=== PATIENT | male | born 1955 | race Caucasian/White ===

== ENCOUNTER 2016-07-16 22:57 | Emergency (ER) | payer SELFPAY | END 2016-07-16 23:22 | disposition home or self-care (01) | LOC: BURERS 22:57 | DX: T63.441A Toxic effect of venom of bees, accidental (unintentional), initial encounter (principal); I10 Essential (primary) hypertension; F32.9 Major depressive disorder, single episode, unspecified | CPT/HCPCS: 99282 ==

== ENCOUNTER 2016-11-05 14:15 | Emergency (ER) | payer SELFPAY ==
--- NOTE | 2016-11-05 17:48 | RAD ---
CERVICAL SPINE 11/05/2016 TECHNIQUE: AP, lateral, open mouth, and Swimmer's views were provided. FINDINGS: No fracture is seen. There is severe degenerative change in the cervical spine, with large bridging osteophytes seen anteriorly, from C3 and below. The disk spaces are normal in height. The C1 to d ens distance is normal. The soft tissues are normal in thickness. IMPRESSION: Severe degenerative change with very large anterior bridging osteophytes. POS: HOME
--- NOTE | 2016-11-05 17:54 | RAD ---
LUMBAR SPINE THREE VIEWS 11/05/2016 FINDINGS: Large bridging anterior and lateral osteophytes are seen. The lumbar disk spaces are normal in heig ht. There may be a little narrowing at T12-L1. There is some very slight wedging of the L1 vertebr al body, but it does not appear acute. The SI joints are somewhat blurred. Some of these findings can be seen in ankylosing spondylitis, though the appearance is certainly not the typical bamboo spi ne. Faint calcification of the aorta is normal. IMPRESSION: Moderately severe degenerative changes. POS: HOME
== END 2016-11-05 15:15 | disposition home or self-care (01) ==
LOC: BURERS 14:15
DX: M47.812 Spondylosis without myelopathy or radiculopathy, cervical region (principal); M47.816 Spondylosis without myelopathy or radiculopathy, lumbar region; F32.9 Major depressive disorder, single episode, unspecified; F17.210 Nicotine dependence, cigarettes, uncomplicated; Z79.899 Other long term (current) drug therapy
CPT/HCPCS: 72040; 72100

== ENCOUNTER 2017-06-29 23:07 | Emergency (ER) | payer BC, OTHER, SELFPAY ==
[2017-06-30] MEDS ORDERED: Ibuprofen 800 MG TAB ONE (00:29)
--- NOTE | 2017-06-30 07:43 | RAD ---
CHEST 2 VIEWS: Date: 06/29/17 The heart is normal in size. There is no mediastinal widening or shift. The lungs are fully inflated and clear. No acute infiltrate or effusion seen. No pneumothorax. Regarding the ribs, no gross fractu res or areas of focal pleural thickening were seen. There may have been an old injury to the distal r ight clavicle. IMPRESSION: No acute thoracic finding. POS: HOME
--- NOTE | 2017-06-30 08:03 | CT ---
PRELIMINARY REPORT/[facility]/EMERGENCY AFTER HOURS PROCEDURE: EXAM: CT Head Without Intravenous Contrast EXAM DATE/TIME: Exam ordered 06/29/2017 11:43 PM CLINICAL HISTORY: 62 years old, male; Injury or trauma; Fall; Initial encounter; Blunt trauma (contusions or hematomas) ; Patient HX: Pt. Fell 2 days ago and hit front of head TECHNIQUE: Axial computed tomography images of the head/brain without intravenous contrast. COMPARISON: No relevant prior studies available. FINDINGS: Brain: Unremarkable. No hemorrhage. No significant white matter disease. No edema. Ventricles: Unremarkable. No ventriculomegaly. Bones/joints: Unremarkable. No acute fracture. Soft tissues: Sizable, incompletely visualized hyperdense masses in the low posterior scalp/upper pos terior neck are potentially hematomas related to trauma; however, induration or neoplasm not excluded . Sinuses: Unremarkable as visualized. No acute sinusitis. Mastoid air cells: Unremarkable as visualized. No mastoid effusion. IMPRESSION: 1. Sizable, incompletely visualized hyperdense masses in the low posterior scalp/upper posterior neck are potentially hematomas related to trauma; however, induration or neoplasm not excluded. 2. No intracranial hemorrhage. Thank you for allowing us to participate in the care of your patient. Dictated and Authenticated by: Yadiel Ching MD 06/30/2017 12:15 AM Central Time ([place] & [place]) FINAL REPORT CT OF THE BRAIN WITHOUT CONTRAST: Date: 06/29/[address] of the brain was performed for evaluation following trauma. FINDINGS: The ventricles are normal in size for age. Atrophy is present throughout the cerebrum. No intracrania l bleeding or extra-axial hematoma seen. No sign of acute stroke, intracranial mass, or edema. The calvarium appears intact. There are no skull fractures. The sphenoid sinus and mastoid air cells are clear. Attention is drawn to the posterior neck and low posterior scalp. There are several hyperdense mas ses in the superficial soft tissues. If this was the site of the patient's trauma, these could be scalp hematomas. Alternatively, these could be true masses and longstanding and of uncertain etiology . Correlate with clinical history and physical exam. IMPRESSION: 1. No acute intracranial findings. 2. Hyperdense masses in the soft tissues of the low posterior scalp and upper posterior neck. See ab ove. Report in agreement with preliminary reading by vRalee. POS: HOME
== END 2017-06-30 00:34 | disposition home or self-care (01) ==
LOC: BURERS 23:07
DX: S00.83XA Contusion of other part of head, initial encounter (principal); S20.211A Contusion of right front wall of thorax, initial encounter; K02.9 Dental caries, unspecified; I10 Essential (primary) hypertension; F32.9 Major depressive disorder, single episode, unspecified; F17.210 Nicotine dependence, cigarettes, uncomplicated; Z79.899 Other long term (current) drug therapy; W19.XXXA Unspecified fall, initial encounter
CPT/HCPCS: 70450; 71046

== ENCOUNTER 2017-11-22 13:57 | Emergency (ER) | payer SELFPAY | END 2017-11-22 14:33 | disposition home or self-care (01) | LOC: BURERS 13:57 | DX: B35.9 Dermatophytosis, unspecified (principal); M54.9 Dorsalgia, unspecified; G89.29 Other chronic pain; Z79.899 Other long term (current) drug therapy | CPT/HCPCS: 99283 ==

== ENCOUNTER 2018-01-10 16:53 | Emergency (ER) | payer SELFPAY | END 2018-01-10 17:25 | disposition home or self-care (01) | LOC: BURERS 16:53 | DX: L98.0 Pyogenic granuloma (principal); G89.29 Other chronic pain; F32.9 Major depressive disorder, single episode, unspecified; F17.210 Nicotine dependence, cigarettes, uncomplicated; F40.00 Agoraphobia, unspecified | CPT/HCPCS: 99283 ==

== ENCOUNTER 2018-02-22 07:59 | Emergency (ER) | payer SELFPAY ==
[2018-02-22 08:37] LABS: #Basophils 0.1 thou/uL (0.0-0.2); #Eosinphils 0.1 thou/uL (0.0-0.7); #Lymphocytes 1.3 thou/uL (1.20-3.40); #Monocytes 0.5 thou/uL (0.11-0.59); #Neutrophils 6.1 thou/uL (1.40-6.50); %Basophils 1.6 % (0.0-1.0); %Eosinophils 0.8 % (0.0-10.0); %Lymphocytes 16.1 % (21.0-51.0); %Monocytes 6.3 % (0.0-10.0); %Neutrophils 75.2 % (42.0-75.0); Mean Corpuscular HGB CONC 35.9 g/dL (32.0-36.0); Mean Corpuscular Hemoglobin 32.9 pg (27.0-31.0); Mean Corpuscular Volume 91.8 fL (78.0-98.0); Mean Platelet Volume 6.4 fL (7.4-10.4); Platelet Count 140 thou/uL (130-400); RBC Distribution Width 12.3 % (11.5-14.5); Red Blood Cell (RBC) Count 4.25 mill/uL (4.70-6.10); White Blood Cell (WBC) Count 8.1 thou/uL (4.8-10.8)
[2018-02-22 08:46] LABS: ALT (SGPT) 13 U/L (8-55); AST (SGOT) 29 U/L (5-34); Albumin 3.9 g/dL (3.4-4.8); Alkaline Phosphatase 62 U/L (40-150); Anion Gap 16 mmol/L (10-20); BUN (Urea Nitrogen) 9 mg/dL (8.4-25.7); Bilirubin, Total 0.6 mg/dL (0.2-1.2); Calc. Creatinine Clearance 0 mL/min (70-130); Calcium 8.4 mg/dL (7.8-10.44); Carbon Dioxide 22 mmol/L (23-31); Chloride 103 mmol/L (98-107); Estimated GFR-MDRD 70; Globulin 3.2 g/dL (2.4-3.5); Glucose 124 mg/dL (80-115); Potassium 3.5 mmol/L (3.5-5.1); Protein, Total 7.1 g/dL (5.8-8.1); Sodium 137 mmol/L (136-145)
[2018-02-22 08:47] LABS: Troponin I Less than 0.010 ng/mL (< 0.028)
[2018-02-22] MEDS ORDERED: Thiamine HCl 200 MG/2 ML VIAL ONE (09:13)
[2018-02-22 09:40] LABS: Clarity Clear (Clear)
[2018-02-22 09:41] LABS: Bilirubin Negative (Negative); Blood, Urine Trace (Negative); Glucose, Urine (Dipstick) Negative (Negative); Leukocyte Trace (Negative); Nitrite Negative (Negative); Protein, Urine (Dipstick) Negative (Neg-Trace)
[2018-02-22] MEDS ORDERED: Lorazepam 2 MG/ML VIAL ONE (09:43)
[2018-02-22 10:08] LABS: Bacteria/HPF None Seen HPF (None Seen); Hyaline Casts/LPF 0-3 HYALINE CAST LPF (0-3 Hyaline); RBC/HPF 0-3 HPF (0-3); Squamous Epithelial 0-3 HPF (0-3); WBC/HPF 0-3 HPF (0-3)
[2018-02-22 10:36] LABS: Acetaminophen Less than 6.0 mcg/mL (10.0-30.0); Alcohol Less than 10 mg/dL (Less than 10); Salicylate Less than 8.0 mg/dL (15.0-30.0)
[2018-02-22] MEDS ORDERED: Lorazepam 0.5 MG TAB ONE (10:59)
[2018-02-22 11:38] LABS: Amphetamine Not Detected (NotDetected); Barbiturates Screen Not Detected (NotDetected); Benzodiazepine Screen Detected (NotDetected); Cocaine Metabolite Screen Not Detected (NotDetected); Medtox Control Line Valid? VALID (VALID); Methadone Not Detected (NotDetected); Methamphetamine Not Detected (NotDetected); Opiate Screen Not Detected (NotDetected); Oxycodone Screen Not Detected (NotDetected); Phencyclidine (PCP) Not Detected (NotDetected); THC/Cannabinoid Screen Not Detected (NotDetected); Tricyclic Screen Not Detected (NotDetected)
[2018-02-22 12:04] LABS: Lactic Acid 2.3 mmol/L (0.5-2.2)
--- NOTE | 2018-02-22 12:48 | CT ---
CT BRAIN WITHOUT CONTRAST: Date: 02-22-[address] of the brain was performed for evaluation of this patient who reports feeling shaky s carol early this morning. Comparison: 06-29-17 FINDINGS: The ventricles are normal in size for age and atrophy and show no shift. No intracranial bleeding or extraaxial hematoma was seen. There was no sign of acute stroke, mass, or edema. The calvarium appears intact. There are hyperdense mass densities seen in the posterior scalp and nuc dayne region. Originally I thought this might be a case of trauma and hematomas, however, in looking at the order study, these were exactly the same before. Thus, they are long standing and of uncertain e tiology. IMPRESSION: No acute intracranial findings. POS: [facility]
== END 2018-02-22 13:07 | disposition home or self-care (01) ==
LOC: BURERS 07:59
DX: E86.0 Dehydration (principal); F41.9 Anxiety disorder, unspecified; F10.10 Alcohol abuse, uncomplicated; F32.9 Major depressive disorder, single episode, unspecified; F17.210 Nicotine dependence, cigarettes, uncomplicated
CPT/HCPCS: 70450; 80053; 80306; 80307; 81003; 81015; 83605; 83880; 84484; 85025; 93005; 96365; 96375; J2060; J3411

== ENCOUNTER 2018-02-24 17:31 | Emergency (ER) | payer MEDICARE, SELFPAY ==
[2018-02-24] MEDS ORDERED: Thiamine HCl 200 MG/2 ML VIAL ONE (17:58)
[2018-02-24 18:03] LABS: #Basophils 0.1 thou/uL (0.0-0.2); #Eosinphils 0.2 thou/uL (0.0-0.7); #Lymphocytes 1.8 thou/uL (1.20-3.40); #Monocytes 0.5 thou/uL (0.11-0.59); #Neutrophils 7.4 thou/uL (1.40-6.50); %Eosinophils 1.6 % (0.0-10.0); %Lymphocytes 17.6 % (21.0-51.0); %Monocytes 5.2 % (0.0-10.0); %Neutrophils 74.6 % (42.0-75.0); Hemoglobin 14.3 g/dL (14.0-18.0); Mean Corpuscular HGB CONC 33.4 g/dL (32.0-36.0); Mean Corpuscular Hemoglobin 30.7 pg (27.0-31.0); Mean Corpuscular Volume 91.9 fL (78.0-98.0); Platelet Count 132 thou/uL (130-400); RBC Distribution Width 12.2 % (11.5-14.5); Red Blood Cell (RBC) Count 4.65 mill/uL (4.70-6.10); White Blood Cell (WBC) Count 9.9 thou/uL (4.8-10.8)
[2018-02-24 18:16] LABS: Acetaminophen Less than 6.0 mcg/mL (10.0-30.0); Alcohol Less than 10 mg/dL (Less than 10); Salicylate Less than 8.0 mg/dL (15.0-30.0)
[2018-02-24 18:18] LABS: ALT (SGPT) 17 U/L (8-55); AST (SGOT) 30 U/L (5-34); Albumin 4.4 g/dL (3.4-4.8); Alkaline Phosphatase 91 U/L (40-150); Anion Gap 15 mmol/L (10-20); BUN (Urea Nitrogen) 13 mg/dL (8.4-25.7); Bilirubin, Total 0.9 mg/dL (0.2-1.2); Calc. Creatinine Clearance 0 mL/min (70-130); Calcium 10.4 mg/dL (7.8-10.44); Carbon Dioxide 23 mmol/L (23-31); Chloride 105 mmol/L (98-107); Estimated GFR-MDRD 65; Globulin 3.7 g/dL (2.4-3.5); Glucose 115 mg/dL (80-115); Potassium 3.9 mmol/L (3.5-5.1); Protein, Total 8.1 g/dL (5.8-8.1); Sodium 139 mmol/L (136-145)
[2018-02-24] MEDS ORDERED: Lorazepam 0.5 MG TAB ONE (18:30)
--- NOTE | 2018-02-24 19:26 | CT ---
CT BRAIN WITHOUT CONTRAST: 02/24/2018 COMPARISON: Prior CT, dated 02/22/2018. TECHNIQUE: Computed tomography of the brain was done without IV contrast for evaluation of this patient who was not oriented to time and place. FINDINGS: There has been no adverse interval change. The ventricles are normal in size for age and atrophy. T here is no sign of acute stroke mass, edema, or bleeding. The calvarium appears intact. The visible sinuses are clear. IMPRESSION: No acute intracranial finding. POS: HOME
[2018-02-24 22:08] LABS: Clarity Clear (Clear); Leukocyte Negative (Negative); Specific Gravity, Urine 1.015 (1.005-1.030); pH, Urine 7.5 (5.0-9.0)
[2018-02-24 22:09] LABS: Bilirubin Negative (Negative); Blood, Urine Trace (Negative); Glucose, Urine (Dipstick) Negative (Negative); Nitrite Negative (Negative); Protein, Urine (Dipstick) Trace mg/dL (Neg-Trace)
[2018-02-24 22:12] LABS: Bacteria/HPF Rare-Few HPF (None Seen); RBC/HPF 0-3 HPF (0-3); Squamous Epithelial 0-3 HPF (0-3); WBC/HPF None Seen HPF (0-3)
[2018-02-24 22:14] LABS: Amphetamine Not Detected (NotDetected); Barbiturates Screen Not Detected (NotDetected); Benzodiazepine Screen Detected (NotDetected); Cocaine Metabolite Screen Not Detected (NotDetected); Methadone Not Detected (NotDetected); Methamphetamine Not Detected (NotDetected); Opiate Screen Not Detected (NotDetected); Oxycodone Screen Not Detected (NotDetected); Phencyclidine (PCP) Not Detected (NotDetected); THC/Cannabinoid Screen Not Detected (NotDetected); Tricyclic Screen Not Detected (NotDetected)
[2018-02-24 22:15] LABS: Medtox Control Line Valid? VALID (VALID)
== END 2018-02-24 21:58 | disposition home or self-care (01) ==
LOC: BURERS 17:31
DX: F10.239 Alcohol dependence with withdrawal, unspecified (principal); F41.9 Anxiety disorder, unspecified; F32.9 Major depressive disorder, single episode, unspecified; F17.210 Nicotine dependence, cigarettes, uncomplicated
CPT/HCPCS: 70450; 80053; 80306; 80307; 81003; 81015; 84443; 85025; 94760; 96361; 96374; J3411

== ENCOUNTER 2018-04-07 09:01 | Emergency (ER) | payer MEDICARE ==
[2018-04-07] MEDS ORDERED: Ondansetron ODT 4 MG TAB ONE (09:22)
[2018-04-07] MEDS ORDERED: Ibuprofen 200 MG TAB ONE (10:04)
--- NOTE | 2018-04-07 23:18 | CT ---
CT BRAIN WITHOUT CONTRAST: 04/07/2018 COMPARISON: 02/24/2018 FINDINGS: The ventricles are normal in size for age and atrophy. There is no ventricular shift. No intracrani al bleeding, mass, or extraaxial hematoma is seen. There is no sign of acute stroke. The calvarium appears intact. The sphenoid sinus and mastoid air cells are clear. Hyperdense masses nuchal region, posteriorly, and in some areas of the scalp, have been present on pr ior scans. The etiology is unknown, but they do not appear markedly different in size and shape over time. IMPRESSION: 1. No acute intracranial findings. 2. Scalp and posterior hyperdense soft tissue masses, as described. The latter have not changed sin ce the June scan. Findings called to Dee in the ER at 0945 hours on 04/07/2018. CODE CR POS: HOME
== END 2018-04-07 10:15 | disposition home or self-care (01) ==
LOC: BURERS 09:01
DX: S06.9X9A Unspecified intracranial injury with loss of consciousness of unspecified duration, initial encounter (principal); S01.01XA Laceration without foreign body of scalp, initial encounter; F90.9 Attention-deficit hyperactivity disorder, unspecified type; F17.210 Nicotine dependence, cigarettes, uncomplicated; W18.11XA Fall from or off toilet without subsequent striking against object, initial encounter; Y92.002 Bathroom of unspecified non-institutional (private) residence as the place of occurrence of the external cause
CPT/HCPCS: 70450; Q0162

== ENCOUNTER 2018-06-12 12:34 | Outpatient (CLI) | payer MEDICARE ==
--- NOTE | 2018-06-12 19:44 | RAD ---
LUMBAR SPINE THREE VIEWS: 06/12/18 Comparison is made with a 11/05/16 series. Again noted are extensive degenerative changes throughout. Some of the findings are suggestive of DIS H. Some facet arthritis is likely present around the L5-S1 level. Very slight anterior wedging of L1 is chronic and unchanged from 2017. With flexion and extension there was no abnormal motion in the lumbar spine. The aorta and iliac carloz jaqueline are calcified. IMPRESSION: Little change since 2017. Degenerative changes but no abnormal motion. POS: HOME
== END 2018-06-12 12:35 | disposition home or self-care (01) ==
LOC: BURRAD 12:34
PROVIDERS: ATTEND Neurological Surgery
DX: M54.5 Low back pain (principal); M54.2 Cervicalgia; M47.816 Spondylosis without myelopathy or radiculopathy, lumbar region
CPT/HCPCS: 72100

== ENCOUNTER 2018-07-04 08:31 | Emergency (ER) | payer MEDICARE ==
[2018-07-04] MEDS ORDERED: Thiamine HCl 200 MG/2 ML VIAL ONE (09:23)
[2018-07-04] MEDS ORDERED: Ondansetron PF 4 MG/2 ML Vial ONE ×2 (09:23→10:07)
[2018-07-04 09:41] LABS: #Basophils 0.1 thou/uL (0.0-0.2); #Monocytes 0.2 thou/uL (0.11-0.59); #Neutrophils 5.6 thou/uL (1.40-6.50); %Eosinophils 0.1 % (0.0-10.0); %Lymphocytes 14.3 % (21.0-51.0); %Monocytes 3.4 % (0.0-10.0); %Neutrophils 81.2 % (42.0-75.0); Acetaminophen Less than 6.0 mcg/mL (10.0-30.0); Alcohol 106 mg/dL (Less than 10); Hemoglobin 14.4 g/dL (14.0-18.0); Mean Corpuscular HGB CONC 34.6 g/dL (32.0-36.0); Mean Corpuscular Hemoglobin 30.4 pg (27.0-31.0); Mean Corpuscular Volume 87.9 fL (78.0-98.0); Mean Platelet Volume 5.7 fL (7.4-10.4); Platelet Count 183 thou/uL (130-400); RBC Distribution Width 13.7 % (11.5-14.5); Red Blood Cell (RBC) Count 4.74 mill/uL (4.70-6.10); Salicylate Less than 8.0 mg/dL (15.0-30.0); White Blood Cell (WBC) Count 6.9 thou/uL (4.8-10.8)
[2018-07-04 09:43] LABS: ALT (SGPT) 20 U/L (8-55); AST (SGOT) 34 U/L (5-34); Albumin 4.3 g/dL (3.4-4.8); Alkaline Phosphatase 94 U/L (40-150); Anion Gap 24 mmol/L (10-20); BUN (Urea Nitrogen) 12 mg/dL (8.4-25.7); Calc. Creatinine Clearance 0 mL/min (70-130); Calcium 9.2 mg/dL (7.8-10.44); Carbon Dioxide 16 mmol/L (23-31); Chloride 102 mmol/L (98-107); Estimated GFR-MDRD 72; Globulin 3.5 g/dL (2.4-3.5); Glucose 254 mg/dL (80-115); Lipase 14 U/L (8-78); Potassium 3.6 mmol/L (3.5-5.1); Protein, Total 7.8 g/dL (5.8-8.1); Sodium 138 mmol/L (136-145)
[2018-07-04] MEDS ORDERED: traMADol HCl 50 MG TAB ONE ×2 (09:58→13:46)
[2018-07-04] MEDS ORDERED: Famotidine 20 MG TAB ONE (09:58)
[2018-07-04] MEDS ORDERED: Acetaminophen 500 MG TAB ONE (09:58)
[2018-07-04] MEDS ORDERED: Famotidine In NaCl 20 mg/50 ml Premix Bag ONE (10:10)
[2018-07-04] MEDS ORDERED: Lorazepam 2 MG/ML VIAL ONE ×2 (10:36→12:51)
--- NOTE | 2018-07-04 17:58 | RAD ---
AP PORTABLE CHEST: 07/04/2018 0821 Hours COMPARISON: 06/29/2017 FINDINGS: The heart is normal in size, and the lungs are clear. No infiltrate or effusion is seen. There is n o sign of pneumonia. The trachea is midline, and the mediastinum appears normal. Bony spurring is s een on the undersurface of each AC joint, which could potentially cause impingement. IMPRESSION: No acute thoracic findings. POS: HOME
== END 2018-07-04 13:55 | disposition home or self-care (01) ==
LOC: BURERS 08:31
DX: K92.0 Hematemesis (principal); F10.10 Alcohol abuse, uncomplicated; F41.9 Anxiety disorder, unspecified; F43.10 Post-traumatic stress disorder, unspecified; F32.9 Major depressive disorder, single episode, unspecified; F17.210 Nicotine dependence, cigarettes, uncomplicated
CPT/HCPCS: 36415; 71045; 80053; 80307; 82274; 83690; 85025; 96361; 96365; 96366; 96375; 96376; J2060; J2405; J3411

== ENCOUNTER 2018-12-01 16:45 | Emergency (ER) | payer MEDICARE ==
[2018-12-01] MEDS ORDERED: Adacel (T-DAP) 0.5 ML SYRINGE ONE (17:13)
[2018-12-01] MEDS ORDERED: Amoxicillin/Potassium Clav 875 MG TAB ONE (17:13)
== END 2018-12-01 17:30 | disposition home or self-care (01) ==
LOC: BURERS 16:45
DX: L03.116 Cellulitis of left lower limb (principal); F17.210 Nicotine dependence, cigarettes, uncomplicated; F43.10 Post-traumatic stress disorder, unspecified; F32.9 Major depressive disorder, single episode, unspecified
CPT/HCPCS: 90471; 90715

== ENCOUNTER 2019-05-23 15:22 | Outpatient (CLI) | payer MEDICARE ==
--- NOTE | 2019-05-23 15:42 | RAD ---
XR Shoulder Lt 3 View STANDARD HISTORY: Pain in left shoulder FINDINGS: No fracture or dislocation is identified. There are degenerative changes in the acromioclavicular alfredo nt.
== END 2019-05-23 15:23 | disposition home or self-care (01) ==
LOC: BURRAD 15:22
PROVIDERS: ATTEND Physician Assistant
DX: M25.512 Pain in left shoulder (principal)

== ENCOUNTER 2023-04-20 12:54 | Emergency (ER) | payer MEDICARE ==
[2023-04-20] MEDS ORDERED: Bacitracin 1 PK ONE (14:11)
== END 2023-04-20 15:02 | disposition home or self-care (01) ==
LOC: BURERS 12:54
DX: S61.001D Unspecified open wound of right thumb without damage to nail, subsequent encounter (principal); F17.210 Nicotine dependence, cigarettes, uncomplicated; W18.30XD Fall on same level, unspecified, subsequent encounter

== ENCOUNTER 2023-11-22 14:13 | Emergency (ER) | payer MEDICARE | END 2023-11-22 14:52 | disposition home or self-care (01) | LOC: BURERS 14:13 | DX: H61.22 Impacted cerumen, left ear (principal); I10 Essential (primary) hypertension; F17.290 Nicotine dependence, other tobacco product, uncomplicated | CPT/HCPCS: 69210; 99282 ==

== ENCOUNTER 2024-02-05 17:04 | Outpatient (CLI) | payer MEDICARE | END 2024-02-05 17:05 | disposition home or self-care (01) | LOC: BURRAD 17:04 | PROVIDERS: ATTEND Physician Assistant | DX: M25.531 Pain in right wrist (principal); Z91.81 History of falling ==

== ENCOUNTER 2024-02-25 11:30 | Emergency (ER) | payer MEDICARE ==
[2024-02-25] MEDS ORDERED: Cyclobenzaprine 10 MG TAB ONE (11:59)
[2024-02-25] MEDS ORDERED: Ketorolac Tromethamine 30 MG (1 mL) VIAL ONE (11:59)
== END 2024-02-25 12:49 | disposition home or self-care (01) ==
LOC: BURERS 11:30
DX: S39.012A Strain of muscle, fascia and tendon of lower back, initial encounter (principal); I10 Essential (primary) hypertension; F17.290 Nicotine dependence, other tobacco product, uncomplicated; W10.9XXA Fall (on) (from) unspecified stairs and steps, initial encounter; Y93.89 Activity, other specified; Y92.89 Other specified places as the place of occurrence of the external cause
CPT/HCPCS: 72131; J1885

== ENCOUNTER 2024-05-16 17:57 | Emergency (ER) | payer MEDICARE, OTHER ==
[2024-05-16] MEDS ORDERED: Lidocaine 1% (PF) 30 ML VIAL ONE (20:18)
== END 2024-05-16 21:52 | disposition home or self-care (01) ==
LOC: BURERS 17:57
DX: S01.81XA Laceration without foreign body of other part of head, initial encounter (principal); S01.21XA Laceration without foreign body of nose, initial encounter; I10 Essential (primary) hypertension; F17.290 Nicotine dependence, other tobacco product, uncomplicated; W01.0XXA Fall on same level from slipping, tripping and stumbling without subsequent striking against object, initial encounter; Y93.01 Activity, walking, marching and hiking
CPT/HCPCS: 12013; 70450; 72125

== ENCOUNTER 2024-05-26 13:28 | Emergency (ER) | payer MEDICARE | END 2024-05-26 14:03 | disposition home or self-care (01) | LOC: BURERS 13:28 | DX: S01.21XD Laceration without foreign body of nose, subsequent encounter (principal) ==

== ENCOUNTER 2025-01-02 15:02 | Observation (INO) | payer MEDICARE ==
[~2025-01-02 15:02] MED LIST: Iopamidol 370 76% 100 ML VIAL ONE
[2025-01-02 15:35] LABS: #Basophils 0.2 thou/uL (0.0-0.2); #Eosinophils 0.0 thou/uL (0.0-0.7); #Lymphocytes 1.7 thou/uL (1.20-3.40); #Monocytes 0.9 thou/uL (0.11-0.59); #Neutrophils 6.7 thou/uL (1.40-6.50); %Basophils 1.6 % (0.0-1.0); %Eosinophils 0.1 % (0.0-10.0); %Lymphocytes 17.6 % (21.0-51.0); %Monocytes 10.0 % (0.0-10.0); %Neutrophils 70.7 % (42.0-75.0); Hematocrit 42.2 % (42.0-52.0); Hemoglobin 14.7 g/dL (14.0-18.0); Mean Corpuscular Hemoglobin 29.8 pg (27.0-31.0); Mean Corpuscular Volume 85.6 fl (78.0-98.0); Platelet Count 194 10x3/uL (130-400); Red Blood Cell (RBC) Count 4.93 mill/uL (4.70-6.10); White Blood Cell (WBC) Count 9.4 10x3/uL (4.8-10.8)
[2025-01-02 15:37] LABS: INR-International Normal Ratio 1.2; Prothrombin Time 14.9 sec (12.0-14.7)
[2025-01-02 15:46] LABS: ALT (SGPT) 29 U/L (Less than 45); AST (SGOT) 45 U/L (11-34); Albumin 4.1 g/dL (3.1-4.5); Alkaline Phosphatase 97 U/L (40-110); Anion Gap 20 mmol/L (10-20); BUN (Urea Nitrogen) 31 mg/dL (8.4-25.7); Bilirubin, Total 0.7 mg/dL (0.3-1.2); Calc. Creatinine Clearance 0 mL/min (70-130); Calcium 9.6 mg/dL (7.8-10.44); Carbon Dioxide 24 mmol/L (23-31); Chloride 97 mmol/L (98-107); Globulin 3.8 g/dL (2.4-3.5); Glucose 136 mg/dL (83-110); Potassium 3.6 mmol/L (3.5-5.1); Sodium 137 mmol/L (136-145)
[2025-01-02 15:49] LABS: Troponin I 0.011 ng/mL (< 0.028)
[2025-01-02] MEDS ORDERED: Boostrix 0.5 ML (Tdap) VIAL (>/=7 yrs of age) ONE (16:57)
[2025-01-02 19:02] VITALS: BMI 27.8
[2025-01-02] MEDS: Carvedilol 6.25 MG TAB PO SCH (22:00)
[2025-01-02] MEDS: Gabapentin 300 MG CAP PO SCH (22:00)
[2025-01-02] MEDS: Acetaminophen/Codeine 30-300mg Tablet PO PRN (22:15)
[2025-01-03 05:43] LABS: Anion Gap 16 mmol/L (10-20); BUN (Urea Nitrogen) 33 mg/dL (8.4-25.7); Calc. Creatinine Clearance 46 mL/min (70-130); Calcium 8.7 mg/dL (7.8-10.44); Carbon Dioxide 23 mmol/L (23-31); Chloride 101 mmol/L (98-107); Glucose 97 mg/dL (83-110); Potassium 3.8 mmol/L (3.5-5.1); Sodium 136 mmol/L (136-145)
[2025-01-03] MEDS ORDERED: cloNIDine 0.1 MG TAB PO PRN (07:52)
[2025-01-03] MEDS: Thiamine 100 MG TAB PO SCH (08:15)
[2025-01-03] MEDS: DULoxetine 30 MG CAP PO SCH (08:15)
[2025-01-03] MEDS: Folic Acid 1 MG TAB PO SCH (08:16)
[2025-01-03] MEDS: Pantoprazole 40 MG DR.TAB PO SCH (08:16)
[2025-01-03] MEDS: Heparin 5,000 UNITS/ML VIAL SC SCH (08:17)
[2025-01-04 15:01] VITALS: BP 123/73; TEMP 98.3
== END 2025-01-04 14:55 | disposition home or self-care (01) ==
LOC: BURERS 15:02 → BURMED 18:05
PROVIDERS: ADMIT Family Medicine; ATTEND Family Medicine
DX: E86.0 Dehydration (principal); N17.9 Acute kidney failure, unspecified; N28.9 Disorder of kidney and ureter, unspecified; I10 Essential (primary) hypertension; F41.9 Anxiety disorder, unspecified; F32.A Depression, unspecified; E78.5 Hyperlipidemia, unspecified; S90.455A Superficial foreign body, left lesser toe(s), initial encounter; M54.9 Dorsalgia, unspecified; G89.29 Other chronic pain; F17.200 Nicotine dependence, unspecified, uncomplicated; F10.10 Alcohol abuse, uncomplicated; Y90.9 Presence of alcohol in blood, level not specified; Z90.89 Acquired absence of other organs; Z79.899 Other long term (current) drug therapy
CPT/HCPCS: 28190; 36415; 70450; 71260; 72125; 74177; 80048; 80053; 83880; 84484; 85025; 85610; 90471; 90715; 93005; 96372; G0378; J1644; J7030; Q9967

== ENCOUNTER 2025-02-12 14:44 | Outpatient (CLI) | payer MEDICARE | END 2025-02-12 14:45 | disposition home or self-care (01) | LOC: BURRAD 14:44 | PROVIDERS: ATTEND Nurse Practitioner Family | DX: M54.50 Low back pain, unspecified (principal); M25.551 Pain in right hip; M47.816 Spondylosis without myelopathy or radiculopathy, lumbar region | CPT/HCPCS: 72110 ==

== ENCOUNTER 2025-04-18 11:19 | Emergency (ER) | payer MEDICARE ==
[2025-04-18] MEDS ORDERED: Acetaminophen/Codeine 30-300mg Tablet ONE (11:53)
[2025-04-18 12:22] LABS: #Basophils 0.1 thou/uL (0.0-0.2); #Eosinophils 0.0 thou/uL (0.0-0.7); #Lymphocytes 1.2 thou/uL (1.20-3.40); #Monocytes 0.7 thou/uL (0.11-0.59); #Neutrophils 10.5 thou/uL (1.40-6.50); %Basophils 0.8 % (0.0-1.0); %Eosinophils 0.3 % (0.0-10.0); %Lymphocytes 9.6 % (21.0-51.0); %Monocytes 5.6 % (0.0-10.0); %Neutrophils 83.7 % (42.0-75.0); Hematocrit 37.2 % (42.0-52.0); Hemoglobin 11.9 g/dL (14.0-18.0); Mean Corpuscular Hemoglobin 30.2 pg (27.0-31.0); Mean Corpuscular Volume 94.2 fl (78.0-98.0); Platelet Count 217 10x3/uL (130-400); Red Blood Cell (RBC) Count 3.95 mill/uL (4.70-6.10); White Blood Cell (WBC) Count 12.5 10x3/uL (4.8-10.8)
[2025-04-18 12:34] LABS: ALT (SGPT) 26 U/L (Less than 45); AST (SGOT) 30 U/L (11-34); Albumin 3.8 g/dL (3.1-4.5); Alkaline Phosphatase 120 U/L (40-110); Anion Gap 18 mmol/L (10-20); BUN (Urea Nitrogen) 17 mg/dL (8.4-25.7); Bilirubin, Total 0.8 mg/dL (0.3-1.2); Calc. Creatinine Clearance 0 mL/min (70-130); Calcium 9.3 mg/dL (7.8-10.44); Carbon Dioxide 23 mmol/L (23-31); Chloride 106 mmol/L (98-107); Globulin 3.3 g/dL (2.4-3.5); Glucose 123 mg/dL (83-110); Magnesium 2.0 mg/dL (1.6-2.6); Potassium 4.2 mmol/L (3.5-5.1); Sodium 143 mmol/L (136-145)
[2025-04-18] MEDS ORDERED: Ketorolac Tromethamine 30 MG (1 mL) VIAL ONE (13:06)
== END 2025-04-18 14:27 | disposition home or self-care (01) ==
LOC: BURERS 11:19
DX: R53.1 Weakness (principal); G89.29 Other chronic pain; M54.50 Low back pain, unspecified; F11.20 Opioid dependence, uncomplicated; I10 Essential (primary) hypertension; E78.00 Pure hypercholesterolemia, unspecified; F17.290 Nicotine dependence, other tobacco product, uncomplicated; Z55.6 Problems related to health literacy
CPT/HCPCS: 80053; 83735; 85025; 87428; 93005; J1885; 96374

== ENCOUNTER 2025-04-20 02:39 | Emergency (ER) | payer MEDICARE ==
[2025-04-20] MEDS ORDERED: Ketorolac Tromethamine 30 MG (1 mL) VIAL ONE (03:05)
[2025-04-20 03:10] LABS: #Basophils 0.1 thou/uL (0.0-0.2); #Eosinophils 0.0 thou/uL (0.0-0.7); #Lymphocytes 0.8 thou/uL (1.20-3.40); #Monocytes 0.3 thou/uL (0.11-0.59); #Neutrophils 8.7 thou/uL (1.40-6.50); %Basophils 0.9 % (0.0-1.0); %Eosinophils 0.5 % (0.0-10.0); %Lymphocytes 8.4 % (21.0-51.0); %Monocytes 3.4 % (0.0-10.0); %Neutrophils 86.9 % (42.0-75.0); Hematocrit 41.6 % (42.0-52.0); Hemoglobin 13.5 g/dL (14.0-18.0); Mean Corpuscular Hemoglobin 30.2 pg (27.0-31.0); Mean Corpuscular Volume 93.3 fl (78.0-98.0); Platelet Count 245 10x3/uL (130-400); Red Blood Cell (RBC) Count 4.46 mill/uL (4.70-6.10); White Blood Cell (WBC) Count 10.1 10x3/uL (4.8-10.8)
[2025-04-20 03:22] LABS: Bicarbonate (HCO3v) 24.5 mmol/L (22.0-28.0); CO2 Tension (PvCO2) 34.6 mmHg (42.0-51.0); Calcium, Ionized 1.16 mmol/L (1.15-1.33); Chloride 103 mmol/L (98-107); Hemoglobin - Calc 13.7 g/dL (14.0-18.0); Potassium 4.2 mmol/L (3.5-5.1); Sodium 137 mmol/L (138-145); T. Carbon Dioxide 25.6 mmol/L (22.0-28.0); vO2 Saturation-calc 99.5 % (60.0-85.0)
[2025-04-20 03:24] LABS: ALT (SGPT) 23 U/L (Less than 45); AST (SGOT) 27 U/L (11-34); Albumin 4.3 g/dL (3.1-4.5); Alkaline Phosphatase 128 U/L (40-110); Anion Gap 21 mmol/L (10-20); BUN (Urea Nitrogen) 18 mg/dL (8.4-25.7); Bilirubin, Total 1.4 mg/dL (0.3-1.2); Calc. Creatinine Clearance 0 mL/min (70-130); Calcium 10.0 mg/dL (7.8-10.44); Carbon Dioxide 20 mmol/L (23-31); Chloride 101 mmol/L (98-107); Globulin 3.8 g/dL (2.4-3.5); Glucose 172 mg/dL (83-110); Lipase 19 U/L (8-78); Magnesium 1.9 mg/dL (1.6-2.6); Potassium 4.1 mmol/L (3.5-5.1); Sodium 138 mmol/L (136-145)
[2025-04-20] MEDS ORDERED: Carvedilol 6.25 MG TAB ONE (03:33)
[2025-04-20 03:57] LABS: Bacteria/HPF Rare-Few HPF (None Seen); CAUTI Indications for Culture Alt mental st,lethar; Glucose, Urine (Dipstick) 100 mg/dL (Negative); Leukocyte Negative (Negative); Protein, Urine (Dipstick) 30 mg/dL (Neg-Trace); RBC/HPF 0-3 HPF (0-3); Specific Gravity, Urine 1.020 (1.005-1.030); WBC/HPF 0-3 HPF (0-3)
[2025-04-20 03:58] LABS: Urine Culture Reflex No No
[2025-04-20 04:04] LABS: Cocaine Metabolite Screen Negative (Negative); THC/Cannabinoid Screen Negative (Negative); Tricyclic Screen Negative (Negative)
[2025-04-20] MEDS ORDERED: Ondansetron PF 4 MG/2 ML Vial ONE (04:50)
== END 2025-04-20 06:35 | disposition home or self-care (01) ==
LOC: BURERS 02:39
DX: R11.2 Nausea with vomiting, unspecified (principal); F19.939 Other psychoactive substance use, unspecified with withdrawal, unspecified; I10 Essential (primary) hypertension; E78.5 Hyperlipidemia, unspecified; M54.9 Dorsalgia, unspecified; G89.29 Other chronic pain; F32.A Depression, unspecified; F43.10 Post-traumatic stress disorder, unspecified; F17.290 Nicotine dependence, other tobacco product, uncomplicated
CPT/HCPCS: 36415; 80053; 80306; 80307; 81001; 82330; 82435; 82803; 83690; 83735; 84132; 84295; 85014; 85025; 96374; 96375; J1885; J2405; J2550; J3360

== ENCOUNTER 2025-05-01 14:32 | Emergency (ER) | payer MEDICARE ==
[2025-05-01] MEDS ORDERED: Ketorolac Tromethamine 30 MG (1 mL) VIAL ONE (15:15)
== END 2025-05-01 16:20 | disposition home or self-care (01) ==
LOC: BURERS 14:32
DX: S29.012A Strain of muscle and tendon of back wall of thorax, initial encounter (principal); I10 Essential (primary) hypertension; F17.290 Nicotine dependence, other tobacco product, uncomplicated; Z79.899 Other long term (current) drug therapy; W01.198A Fall on same level from slipping, tripping and stumbling with subsequent striking against other object, initial encounter
CPT/HCPCS: 96372; 99283; J1885

== ENCOUNTER 2025-05-02 13:23 | Emergency (ER) | payer MEDICARE ==
[2025-05-02] MEDS ORDERED: Pantoprazole 40 MG VIAL ONE (13:45)
[2025-05-02 13:52] LABS: #Basophils 0.1 thou/uL (0.0-0.2); #Eosinophils 0.1 thou/uL (0.0-0.7); #Lymphocytes 1.9 thou/uL (1.20-3.40); #Monocytes 0.4 thou/uL (0.11-0.59); #Neutrophils 10.4 thou/uL (1.40-6.50); %Basophils 1.0 % (0.0-1.0); %Eosinophils 0.5 % (0.0-10.0); %Lymphocytes 14.7 % (21.0-51.0); %Monocytes 3.2 % (0.0-10.0); %Neutrophils 80.5 % (42.0-75.0); Hematocrit 45.8 % (42.0-52.0); Hemoglobin 15.1 g/dL (14.0-18.0); Mean Corpuscular Hemoglobin 29.9 pg (27.0-31.0); Mean Corpuscular Volume 90.9 fl (78.0-98.0); Platelet Count 286 10x3/uL (130-400); Red Blood Cell (RBC) Count 5.04 mill/uL (4.70-6.10); White Blood Cell (WBC) Count 12.9 10x3/uL (4.8-10.8)
[2025-05-02 14:08] LABS: ALT (SGPT) 21 U/L (Less than 45); AST (SGOT) 30 U/L (11-34); Albumin 4.2 g/dL (3.1-4.5); Alkaline Phosphatase 122 U/L (40-110); Anion Gap 22 mmol/L (10-20); BUN (Urea Nitrogen) 26 mg/dL (8.4-25.7); Bilirubin, Total 1.2 mg/dL (0.3-1.2); Calc. Creatinine Clearance 0 mL/min (70-130); Calcium 10.2 mg/dL (7.8-10.44); Carbon Dioxide 20 mmol/L (23-31); Chloride 100 mmol/L (98-107); Globulin 3.9 g/dL (2.4-3.5); Glucose 136 mg/dL (83-110); Lipase 28 U/L (8-78); Potassium 4.7 mmol/L (3.5-5.1); Sodium 137 mmol/L (136-145)
[2025-05-02] MEDS ORDERED: diphenhydrAMINE 50 MG/ML VIAL ONE (14:30)
[2025-05-02 15:15] LABS: Glucose, Urine (Dipstick) Negative (Negative); Leukocyte Negative (Negative); Protein, Urine (Dipstick) 30 mg/dL (Neg-Trace); Specific Gravity, Urine 1.020 (1.005-1.030)
[2025-05-02 15:23] LABS: Bacteria/HPF None Seen HPF (None Seen); CAUTI Indications for Culture Pelvic or flank pain; RBC/HPF None Seen HPF (0-3); WBC/HPF None Seen HPF (0-3)
[2025-05-02 15:24] LABS: Urine Culture Reflex No No
[2025-05-02 15:53] LABS: Anion Gap 20 mmol/L (10-20); BUN (Urea Nitrogen) 24 mg/dL (8.4-25.7); Calc. Creatinine Clearance 0 mL/min (70-130); Calcium 9.1 mg/dL (7.8-10.44); Carbon Dioxide 19 mmol/L (23-31); Chloride 103 mmol/L (98-107); Glucose 119 mg/dL (83-110); Potassium 4.0 mmol/L (3.5-5.1); Sodium 138 mmol/L (136-145)
[2025-05-02] MEDS ORDERED: Acetaminophen 325 MG TAB ONE (16:55)
== END 2025-05-02 17:44 | disposition home or self-care (01) ==
LOC: BURERS 13:23
DX: S09.90XA Unspecified injury of head, initial encounter (principal); R11.2 Nausea with vomiting, unspecified; R10.84 Generalized abdominal pain; N28.9 Disorder of kidney and ureter, unspecified; E86.0 Dehydration; R51.9 Headache, unspecified; I10 Essential (primary) hypertension; F17.290 Nicotine dependence, other tobacco product, uncomplicated; W19.XXXA Unspecified fall, initial encounter; Y92.009 Unspecified place in unspecified non-institutional (private) residence as the place of occurrence of the external cause
CPT/HCPCS: 70450; 71045; 80048; 80053; 81001; 83690; 85025; 93005; J1200; J2272; J2470; 36415; 96374; 96375

== ENCOUNTER 2025-05-05 14:22 | Emergency (ER) | payer MEDICARE | END 2025-05-05 17:10 | disposition home or self-care (01) | LOC: BURERS 14:22 | DX: M54.50 Low back pain, unspecified (principal); I10 Essential (primary) hypertension; F17.290 Nicotine dependence, other tobacco product, uncomplicated | CPT/HCPCS: J2270; J2272; J2919; 96374; 96375 ==

== ENCOUNTER 2025-05-07 13:23 | Emergency (ER) | payer MEDICARE ==
[2025-05-07] MEDS ORDERED: Ketorolac Tromethamine 30 MG (1 mL) VIAL ONE (14:12)
== END 2025-05-07 15:00 | disposition home or self-care (01) ==
LOC: BURERS 13:23
DX: M54.50 Low back pain, unspecified (principal); G89.29 Other chronic pain; I10 Essential (primary) hypertension; F17.290 Nicotine dependence, other tobacco product, uncomplicated
CPT/HCPCS: 96374; J1885

== ENCOUNTER 2025-05-11 18:59 | Emergency (ER) | payer MEDICARE ==
[2025-05-11] MEDS ORDERED: Ondansetron PF 4 MG/2 ML Vial ONE (19:14)
[2025-05-11] MEDS ORDERED: Ketorolac Tromethamine 30 MG (1 mL) VIAL ONE (19:14)
[2025-05-11 19:42] LABS: #Basophils 0.1 thou/uL (0.0-0.2); #Eosinophils 0.2 thou/uL (0.0-0.7); #Lymphocytes 3.0 thou/uL (1.20-3.40); #Monocytes 0.6 thou/uL (0.11-0.59); #Neutrophils 11.7 thou/uL (1.40-6.50); %Basophils 0.9 % (0.0-1.0); %Eosinophils 1.6 % (0.0-10.0); %Lymphocytes 19.3 % (21.0-51.0); %Monocytes 3.7 % (0.0-10.0); %Neutrophils 74.6 % (42.0-75.0); Hematocrit 45.8 % (42.0-52.0); Hemoglobin 14.5 g/dL (14.0-18.0); Mean Corpuscular Hemoglobin 30.0 pg (27.0-31.0); Mean Corpuscular Volume 95.0 fl (78.0-98.0); Platelet Count 315 10x3/uL (130-400); Red Blood Cell (RBC) Count 4.82 mill/uL (4.70-6.10); White Blood Cell (WBC) Count 15.6 10x3/uL (4.8-10.8)
[2025-05-11 20:00] LABS: ALT (SGPT) 27 U/L (Less than 45); AST (SGOT) 22 U/L (11-34); Albumin 4.1 g/dL (3.1-4.5); Alkaline Phosphatase 157 U/L (40-110); Anion Gap 16 mmol/L (10-20); BUN (Urea Nitrogen) 20 mg/dL (8.4-25.7); Bilirubin, Total 0.9 mg/dL (0.3-1.2); Calc. Creatinine Clearance 0 mL/min (70-130); Calcium 9.6 mg/dL (7.8-10.44); Carbon Dioxide 25 mmol/L (23-31); Chloride 103 mmol/L (98-107); Globulin 3.5 g/dL (2.4-3.5); Glucose 99 mg/dL (83-110); Potassium 4.4 mmol/L (3.5-5.1); Sodium 140 mmol/L (136-145)
== END 2025-05-11 20:40 | disposition home or self-care (01) ==
LOC: BURERS 18:59
DX: S39.92XA Unspecified injury of lower back, initial encounter (principal); W17.89XA Other fall from one level to another, initial encounter
CPT/HCPCS: 71250; 72131; 80053; 85025; J1885; J2405; 36415; 96374; 96375

== ENCOUNTER 2025-05-13 19:16 | Emergency (ER) | payer MEDICARE, OTHER ==
[2025-05-13 19:57] LABS: #Basophils 0.1 thou/uL (0.0-0.2); #Eosinophils 0.1 thou/uL (0.0-0.7); #Lymphocytes 2.7 thou/uL (1.20-3.40); #Monocytes 0.7 thou/uL (0.11-0.59); #Neutrophils 9.7 thou/uL (1.40-6.50); %Basophils 0.7 % (0.0-1.0); %Eosinophils 0.6 % (0.0-10.0); %Lymphocytes 20.2 % (21.0-51.0); %Monocytes 5.2 % (0.0-10.0); %Neutrophils 73.3 % (42.0-75.0); Hematocrit 42.7 % (42.0-52.0); Hemoglobin 13.9 g/dL (14.0-18.0); Mean Corpuscular Hemoglobin 30.1 pg (27.0-31.0); Mean Corpuscular Volume 92.5 fl (78.0-98.0); Platelet Count 292 10x3/uL (130-400); Red Blood Cell (RBC) Count 4.62 mill/uL (4.70-6.10); White Blood Cell (WBC) Count 13.3 10x3/uL (4.8-10.8)
[2025-05-13 20:11] LABS: ALT (SGPT) 23 U/L (Less than 45); AST (SGOT) 29 U/L (11-34); Albumin 3.9 g/dL (3.1-4.5); Alkaline Phosphatase 147 U/L (40-110); Anion Gap 19 mmol/L (10-20); BUN (Urea Nitrogen) 15 mg/dL (8.4-25.7); Bilirubin, Total 1.0 mg/dL (0.3-1.2); Calc. Creatinine Clearance 0 mL/min (70-130); Calcium 9.3 mg/dL (7.8-10.44); Carbon Dioxide 23 mmol/L (23-31); Chloride 104 mmol/L (98-107); Globulin 3.4 g/dL (2.4-3.5); Glucose 100 mg/dL (83-110); Potassium 4.1 mmol/L (3.5-5.1); Sodium 142 mmol/L (136-145)
[2025-05-13 20:21] LABS: Glucose, Urine (Dipstick) Negative (Negative); Leukocyte Negative (Negative); Protein, Urine (Dipstick) 100 mg/dL (Neg-Trace); Specific Gravity, Urine 1.015 (1.005-1.030)
[2025-05-13 20:28] LABS: Bacteria/HPF 1+ HPF (None Seen); CAUTI Indications for Culture Alt mental st,lethar; RBC/HPF 0-3 HPF (0-3); WBC/HPF 0-3 HPF (0-3)
[2025-05-13 20:29] LABS: Urine Culture Reflex No No
== END 2025-05-13 21:17 | disposition home or self-care (01) ==
LOC: BURERS 19:16
DX: S90.121A Contusion of right lesser toe(s) without damage to nail, initial encounter (principal); S00.11XA Contusion of right eyelid and periocular area, initial encounter; S00.83XA Contusion of other part of head, initial encounter; S60.011A Contusion of right thumb without damage to nail, initial encounter; R25.1 Tremor, unspecified; I10 Essential (primary) hypertension; F17.290 Nicotine dependence, other tobacco product, uncomplicated; R29.700 NIHSS score 0; W18.30XA Fall on same level, unspecified, initial encounter; S22.41XA Multiple fractures of ribs, right side, initial encounter for closed fracture; S62.514A Nondisplaced fracture of proximal phalanx of right thumb, initial encounter for closed fracture; W18.39XA Other fall on same level, initial encounter; Y93.89 Activity, other specified; Z79.899 Other long term (current) drug therapy
CPT/HCPCS: 36415; 36416; 70450; 70486; 72125; 80053; 81001; 85025; 94799; 99284